=== PATIENT | male | born 1960 | race Native Hawaiian/Other Pacific Islander ===

== ENCOUNTER 2016-08-01 14:30 | Emergency (ER) | payer OTHER ==
[~2016-08-01] VITALS: Ht 167.6 cm; Wt 68.0 kg
[2016-08-01] MEDS ORDERED: TDAP DIPH,PERTUSS,TET VAC/PF 0.5 ML DISP.SYRIN IM ONE ×2 (15:00→15:18)
--- NOTE | 2016-08-01 15:16 | NUR ---
Note aleks in EDM - 08/01/16 at 1520 by JOHNNY Patient discharged to home in stable conditon. Written and verbal after care instructions given. Patient verbalizes understanding of instructions.pt walks in steady gait, deneis any dizziness or nausea or any other distress at this time.
--- NOTE | 2016-08-01 15:48 | NUR ---
Patient discharged to home in stable conditon. Written and verbal after care instructions given. Patient verbalizes understanding of instructions.pt walks in steady gait.deneis nay dizziness or nausea.
== END 2016-08-01 15:49 | disposition home or self-care (01) ==
LOC: ER 14:30
DX: S06.0X0A Concussion without loss of consciousness, initial encounter (principal); R51 Headache; Z88.6 Allergy status to analgesic agent; Z88.8 Allergy status to other drugs, medicaments and biological substances; W22.8XXA Striking against or struck by other objects, initial encounter; Y93.89 Activity, other specified; Y99.8 Other external cause status; Y92.89 Other specified places as the place of occurrence of the external cause
CPT/HCPCS: 70450; 90715; A4663

== ENCOUNTER 2016-10-03 07:21 | Emergency (ER) | payer MEDICAID, OTHER ==
[~2016-10-03] VITALS: Ht 170.2 cm; Wt 65.8 kg
--- NOTE | 2016-10-03 08:09 | NUR ---
PT WAS EVALUATED BY DR HURD. PT WAS D/C TO HOME. D/C INSTRUCTIONS GIVEN TO THE PT.
[2016-10-03 08:11] VITALS: BP 131/78
== END 2016-10-03 08:11 | disposition home or self-care (01) ==
LOC: ER 07:21
DX: J40 Bronchitis, not specified as acute or chronic (principal); Z88.8 Allergy status to other drugs, medicaments and biological substances
CPT/HCPCS: 71010; A4663

== ENCOUNTER 2016-12-20 07:34 | Emergency (ER) | payer MEDICAID, OTHER ==
[~2016-12-20] VITALS: Ht 170.2 cm; Wt 63.5 kg
[2016-12-20] MEDS ORDERED: NAPR500T6 PO (07:45)
[2016-12-20] MEDS ORDERED: MELO7.5T12 PO (07:45)
[2016-12-20] MEDS ORDERED: IV NORMAL SALINE 1000 ML BAG IV ONE (08:00)
--- NOTE | 2016-12-20 08:26 | NUR ---
Pt c/o RUQ ABD pain and tenderness since 0500, n/v x2 slight tenderness in LUQ too. [id number]. Pt denies CP, SOB, no other complaints, no distress noted.
[2016-12-20 08:29] LABS: BASOPHILS % (AUTO) 0.7 % (0.0-2.0); EOSINOPHILS # (AUTO) 0.1 K/uL (0.0-0.7); EOSINOPHILS % (AUTO) 0.9 % (0.0-7.0); HEMATOCRIT 47.5 % (40-50); HEMOGLOBIN 15.9 G/DL (14.0-18.0); LYMPHOCYTES # (AUTO) 0.8 K/UL (0.8-4.8); LYMPHOCYTES % (AUTO) 11.6 % (20.5-51.5); MEAN CORPUSCULAR HEMOGLOBIN 29.5 UUG (27.0-31.0); MEAN CORPUSCULAR HGB CONC 33 g/dL (32.0-37.0); MEAN CORPUSCULAR VOLUME 88.1 FL (82.0-92.0); MONOCYTES # (AUTO) 0.2 K/UL (0.1-1.30); MONOCYTES % (AUTO) 3.1 % (0.0-11.0); NEUTROPHILS # (AUTO) 5.4 K/UL (1.8-8.9); NEUTROPHILS % (AUTO) 83.7 % (38.5-71.5); PLATELET COUNT (AUTO) 168 K/UL (150-450); RED BLOOD CELL COUNT(AUTO) 5.39 MIL/UL (4.7-6.1); WHITE BLOOD COUNT (AUTO) 6.5 K/UL (4.0-11.2)
[2016-12-20 08:32] LABS: CREATININE 1.2 mg/dL (0.6-1.3); POTASSIUM 3.4 mmol/L (3.5-5.1)
[2016-12-20 08:37] LABS: BILIRUBIN,DIRECT 0.1 mg/dL (0.0-0.2); BILIRUBIN,TOTAL 0.6 mg/dL (0.2-1.0); TOTAL PROTEIN, SERUM 7.6 g/dL (6.4-8.2)
[2016-12-20 08:46] LABS: BAND % (MANUAL) 12 % (0-10); LYMPHOCYTES % (MANUAL) 12 % (20-40); MONOCYTES % (MANUAL) 5 % (2-10); NEUTROPHILS % (MANUAL) 71 % (42-75)
[2016-12-20] MEDS ORDERED: ONDANSETRON IV *ER 4 MG/2 ML VIAL IV ONE (09:15)
[2016-12-20] MEDS ORDERED: KETOROLAC TROMETHAMINE 30 MG INJ IVP ONE (09:15)
[2016-12-20] MEDS ORDERED: KETOROLAC TROMETHAMINE 30 MG INJ ONE (09:28)
[2016-12-20] MEDS ORDERED: ONDANSETRON 4 MG/2 ML VIAL ONE (09:28)
--- NOTE | 2016-12-20 10:01 | NUR ---
Pt states he is feeling much better, pain gone, no nausea. IV removed intact, site okay, bandaged. Gave pt RX, strainer and sample container, and d/c instructions, verbalized instructions.
[2016-12-20 10:04] LABS: *BLOOD, URINE 3+ (NEGATIVE); *CLARITY,URINE CLOUDY (CLEAR); *COLOR,URINE AMBER (YELLOW); *KETONES,URINE TRACE (NEGATIVE); LEUKOCYTE ESTERASE ,URINE NEGATIVE (NEGATIVE); NITRITE, URINE NEGATIVE (NEGATIVE); PH,URINE 5.5 (5.0-8.0); UGLUCOSE NEGATIVE (NEGATIVE)
[2016-12-20 10:15] LABS: *BILIRUBIN,URIN NEGATIVE (NEGATIVE)
[2016-12-20 10:31] LABS: *PROTEIN,URINE 2+ (NEGATIVE)
[2016-12-20 10:33] LABS: RBC,URINE TNTC /HPF (0-3); WBC,URINE 0-3 /HPF (0-3)
[2016-12-20 10:34] LABS: BACTERIA,URINE NONE SEEN /HPF (NONE SEEN); SQUAMOUS EPITHELIAL CELL,UR FEW /HPF (NONE SEEN)
[2016-12-20 10:35] LABS: CALCIUM OXALATE CRYSTALS,UR MODERATE /HPF (NONE SEEN); MUCUS,URINE FEW /LPF (0-FEW)
== END 2016-12-20 10:11 | disposition home or self-care (01) ==
LOC: ER 07:36
DX: N20.0 Calculus of kidney (principal); Z88.8 Allergy status to other drugs, medicaments and biological substances
CPT/HCPCS: 36415; 83690; 85025; A4663; J1885; J2405; J7030

== ENCOUNTER 2018-09-23 07:20 | Emergency (ER) | payer OTHER ==
[~2018-09-23] VITALS: Ht 165.1 cm; Wt 68.0 kg
[~2018-09-23 07:20] MED LIST: MELO7.5T12 PO; NAPR500T6 PO
--- NOTE | 2018-09-23 07:37 | NUR ---
Pt.was seen by .
[2018-09-23 07:59] VITALS: BP 126/74
== END 2018-09-23 08:02 | disposition home or self-care (01) ==
LOC: ER 07:20
DX: M54.5 Low back pain (principal); Z88.8 Allergy status to other drugs, medicaments and biological substances; Z79.899 Other long term (current) drug therapy
CPT/HCPCS: A4663